=== PATIENT | male | born 1970 | race Caucasian/White ===

== ENCOUNTER → 2019-08-09 | Outpatient (CLI) | payer BC ==
[2019-08-09 16:46] LABS: HEMATOCRIT 46.1 % (42.0-52.0); MEAN CELL VOLUME 98.7 fl (80.0-94.0); MEAN CORPUSCULAR HGB 33.8 pg (27.0-31.0); MEAN CORPUSCULAR HGB CONC 34.3 g/dl (33.0-37.0); MEAN PLATELET VOLUME 9.2 fl (9.6-12.3); PLATELET COUNT AUTOMATED 291 10*3/uL (130-400); RED BLOOD COUNT 4.67 10*6/uL (4.50-5.90); WHITE BLOOD COUNT 10.5 10*3/uL (4.8-10.8)
[2019-08-09 17:07] LABS: ALKALINE PHOSPHATASE 75 U/L (45-117); BUN 11 mg/dl (7-24); CHLORIDE 103 mmol/L (98-107); CHOLESTEROL 249 mg/dL (<200); CREATININE 0.91 mg/dL (0.70-1.30); FREE T4 1.02 ng/dl (0.76-1.46); HDL CHOLESTEROL 62 mg/dl (40-60); LDL CHOLESTEROL 154 mg/dL (9-159); POTASSIUM 3.7 mmol/L (3.5-5.1); SGOT/AST 26 IU/L (3-35); SGPT/ALT 41 U/L (12-78); SODIUM 138 mmol/L (136-145); TOTAL PROTEIN 8.3 gm/dL (6.4-8.2); TRIGLYCERIDES 165 mg/dl (<150); VLDL CHOLESTEROL 33 mg/dL (6-40)
[2019-08-09 17:08] LABS: TOTAL CELLS COUNTED 100 #CELLS
[2019-08-09 17:09] LABS: PLATELET SUFFICIENCY NORMAL (NORMAL)
[2019-08-09 18:05] LABS: VITAMIN D, 25-HYDROXY 37.1 ng/mL (30-100)
== END | disposition home or self-care (01) ==
LOC: LAB 16:27
PROVIDERS: Internal Medicine
DX: Z12.5 Encounter for screening for malignant neoplasm of prostate (principal); R74.8 Abnormal levels of other serum enzymes; R79.89 Other specified abnormal findings of blood chemistry; R53.81 Other malaise; R94.5 Abnormal results of liver function studies; R70.0 Elevated erythrocyte sedimentation rate; E55.9 Vitamin D deficiency, unspecified

== ENCOUNTER → 2020-01-27 | Outpatient (CLI) | payer BC | END | disposition home or self-care (01) | LOC: COVID19 14:59 | PROVIDERS: ATTEND Internal Medicine | DX: Z20.828 Contact with and (suspected) exposure to other viral communicable diseases (principal) ==

== ENCOUNTER 2020-12-20 05:21 | Emergency (ER) | payer BC ==
[~2020-12-20] VITALS: Ht 170.1 cm; Wt 77.1 kg
== END 2020-12-20 06:57 | disposition left against medical advice (07) ==
LOC: ED 05:21
DX: M79.601 Pain in right arm (principal); Z53.21 Procedure and treatment not carried out due to patient leaving prior to being seen by health care provider

== ENCOUNTER 2023-02-11 14:58 | Emergency (ER) | payer OTHER ==
[~2023-02-11] VITALS: Ht 175.2 cm; Wt 72.6 kg
[2023-02-11 16:02] LABS: MANUAL DIFF REFLEX YES; MEAN CORPUSCULAR HGB 31.8 pg (27.0-31.0); MEAN CORPUSCULAR HGB CONC 34.2 g/dl (33.0-37.0); MEAN PLATELET VOLUME 8.8 fl (9.6-12.3); PLATELET COUNT AUTOMATED 343 10*3/uL (130-400); RED BLOOD COUNT 5.16 10*6/uL (4.50-5.90); RED CELL DISTRI WIDTH 12.8 % (0-14.5); WHITE BLOOD COUNT 17.8 10*3/uL (4.8-10.8)
[2023-02-11 16:24] LABS: ALKALINE PHOSPHATASE 92 U/L (46-116); BUN 15 mg/dl (9-23); CHLORIDE 104 mmol/L (98-107); LIPASE 31 U/L (12-53); PLATELET SUFFICIENCY NORMAL (NORMAL); POTASSIUM 3.9 mmol/L (3.4-5.1); SGPT/ALT 12 U/L (5-49); TOTAL CELLS COUNTED 100 #CELLS; TOTAL PROTEIN 7.3 gm/dL (6.0-8.0)
[2023-02-11 19:43] LABS: BILIRUBIN Negative (Negative); BLOOD Negative (Negative); CLARITY Clear (Clear); COLOR Dark Yellow (Yellow); GLUCOSE Negative (Negative); KETONE 1+ (Negative); LEUKO ESTERASE Trace (Negative); NITRITE Negative (Negative); SPECIFIC GRAVITY >= 1.030 (1.001-1.030)
[2023-02-11 20:12] LABS: BACTERIA TRACE; MUCOUS 1+
[2023-02-11 21:32] LABS: URINE AMPHETAMINES Positive (1000ng/ml); URINE BARBITURATES Negative (200ng/ml); URINE BENZODIAZEPINES Negative (200ng/ml); URINE CANNABINOIDS (THC) Negative (50ng/ml); URINE COCAINE Positive (300ng/ml); URINE METHADONE Negative (300ng/ml); URINE OPIATES Negative (300ng/ml); URINE PHENCYCLIDINE Negative (25ng/ml)
[2023-02-11] MEDS ORDERED: CIPRO500 MG PO (22:46)
[2023-02-11] MEDS ORDERED: METRONIDAZOLE500 M1 PO (22:46)
== END 2023-02-11 22:00 | disposition home or self-care (01) ==
LOC: ED 14:58
PROVIDERS: Physician Assistant Medical
DX: K52.9 Noninfective gastroenteritis and colitis, unspecified (principal); R11.2 Nausea with vomiting, unspecified; F17.290 Nicotine dependence, other tobacco product, uncomplicated; Z79.899 Other long term (current) drug therapy; Z20.822 Contact with and (suspected) exposure to COVID-19

== ENCOUNTER 2023-03-10 23:41 | Emergency (ER) | payer OTHER ==
[~2023-03-10] VITALS: Ht 170.1 cm; Wt 77.1 kg
[~2023-03-10 23:41] MED LIST: CIPRO500 MG PO; METRONIDAZOLE500 M1 PO
== END 2023-03-11 01:59 | disposition short-term general hospital (02) ==
LOC: ED 23:41
DX: S81.011A Laceration without foreign body, right knee, initial encounter (principal); W26.8XXA Contact with other sharp object(s), not elsewhere classified, initial encounter; Y93.89 Activity, other specified; Y92.009 Unspecified place in unspecified non-institutional (private) residence as the place of occurrence of the external cause; Y99.8 Other external cause status

== ENCOUNTER 2023-04-02 18:12 | Emergency (ER) | payer OTHER ==
[~2023-04-02] VITALS: Ht 170.1 cm; Wt 77.1 kg
[2023-04-02 19:06] LABS: HEMATOCRIT 46.3 % (42.0-52.0); MEAN CELL VOLUME 94.7 fl (80.0-94.0); MEAN CORPUSCULAR HGB 30.9 pg (27.0-31.0); MEAN CORPUSCULAR HGB CONC 32.6 g/dl (33.0-37.0); MEAN PLATELET VOLUME 9.1 fl (9.6-12.3); PLATELET COUNT AUTOMATED 422 10*3/uL (130-400); RED BLOOD COUNT 4.89 10*6/uL (4.50-5.90); RED CELL DISTRI WIDTH 12.7 % (0-14.5); WHITE BLOOD COUNT 18.4 10*3/uL (4.8-10.8)
[2023-04-02 19:08] LABS: MANUAL DIFF REFLEX YES
[2023-04-02 19:21] LABS: ALKALINE PHOSPHATASE 78 U/L (46-116); BUN 15 mg/dl (9-23); CHLORIDE 108 mmol/L (98-107); POTASSIUM 4.3 mmol/L (3.4-5.1); SGPT/ALT 10 U/L (5-49); TOTAL PROTEIN 7.8 gm/dL (6.0-8.0)
[2023-04-02 19:29] LABS: ATYPICAL LYMPHS 2 % (0-0); BASOPHILS 4 % (0-1); TOTAL CELLS COUNTED 100 #CELLS
[2023-04-02 19:30] LABS: PLATELET SUFFICIENCY HIGH (NORMAL)
[2023-04-02 19:31] LABS: TOXIC GRANULATION SLIGHT
[2023-04-02] MEDS ORDERED: VIBRAMYCIN100 MG PO (20:11)
[2023-04-02] MEDS ORDERED: CEPHALEXIN500 M1 PO (20:11)
== END 2023-04-02 20:03 | disposition home or self-care (01) ==
LOC: ED 18:12
PROVIDERS: Physician Assistant Medical
DX: L08.9 Local infection of the skin and subcutaneous tissue, unspecified (principal)

== ENCOUNTER 2023-10-07 19:34 | Emergency (ER) | payer OTHER ==
[~2023-10-07] VITALS: Ht 165.1 cm; Wt 74.5 kg
[~2023-10-07 19:34] MED LIST changes: +CEPHALEXIN500 M1 PO; +VIBRAMYCIN100 MG PO
[2023-10-07] MEDS ORDERED: SODIUM CHLORIDE 0.9% 1,000 ML IV ONE (20:00)
[2023-10-07 20:04] LABS: BASO # 0.1 10*3/uL (0.0-0.1); BASO % 0.6 % (0.0-1.0); EOS # 0.1 10*3/uL (0.0-0.4); EOS % 0.4 % (1.0-4.0); HEMATOCRIT 45.3 % (42.0-52.0); LYMPH # 2.1 10*3/uL (1.3-4.4); LYMPH % 9.5 % (27.0-41.0); MEAN CELL VOLUME 95.2 fl (80.0-94.0); MEAN CORPUSCULAR HGB 31.9 pg (27.0-31.0); MEAN CORPUSCULAR HGB CONC 33.6 g/dl (33.0-37.0); MEAN PLATELET VOLUME 8.9 fl (9.6-12.3); MONO # 1.4 10*3/uL (0.1-1.0); MONO % 6.4 % (3.0-9.0); NEUT # 18.1 10*3/uL (2.3-7.9); NEUT % 82.4 % (47.0-73.0); PLATELET COUNT AUTOMATED 369 10*3/uL (130-400); RED BLOOD COUNT 4.76 10*6/uL (4.50-5.90); RED CELL DISTRI WIDTH 13.5 % (0-14.5); WHITE BLOOD COUNT 21.9 10*3/uL (4.8-10.8)
[2023-10-07 20:21] LABS: ALKALINE PHOSPHATASE 80 U/L (46-116); BUN 9 mg/dl (9-23); CHLORIDE 106 mmol/L (98-107); ETHYL ALCOHOL 182.3 mg/dl (<3); POTASSIUM 3.7 mmol/L (3.4-5.1); SGPT/ALT 17 U/L (5-49); TOTAL PROTEIN 7.3 gm/dL (6.0-8.0)
[2023-10-07] MEDS ORDERED: ceFAZolin sodium 1 GM in SYRINGE INFUSION 10 ML IV ONE (20:30)
[2023-10-07] MEDS ORDERED: ceFAZolin sodium/sodium chlor 10 ML IV ONE (20:40)
[2023-10-07] MEDS ORDERED: ceFAZolin sodium 1 GM VIAL ONE (20:44)
[2023-10-07 22:00] LABS: BILIRUBIN Negative (Negative); BLOOD Negative (Negative); CLARITY Clear (Clear); COLOR Yellow (Yellow); GLUCOSE Negative (Negative); KETONE Negative (Negative); LEUKO ESTERASE Negative (Negative); NITRITE Negative (Negative); PH 5.5 (4.5-8.0); UROBILINOGEN 0.2 E.U./dl (0.0-1.0)
[2023-10-07 22:06] LABS: HYALINE CAST 0-2; RBC 0-2 rbc/hpf (0-2); WBC 0-2 wbc/hpf (0-5)
[2023-10-08] MEDS ORDERED: Ondansetron Hydrochloride 4 MG/2 ML VIAL IV ONE (04:40)
[2023-10-08] MEDS ORDERED: MORPHINE Sulfate 2 MG/ML SYR IV ONE (04:40)
[2023-10-08] MEDS ORDERED: Bacitracin Zinc 14 GM TUBE T ONE (05:50)
[2023-10-08] MEDS ORDERED: CEPHALEXIN500 M1 PO (05:56)
[2023-10-08] MEDS ORDERED: TRAMADOL HCL50 MG PO (05:57)
== END 2023-10-08 06:46 | disposition home or self-care (01) ==
LOC: ED 19:34
PROVIDERS: Emergency Medicine
DX: S01.01XA Laceration without foreign body of scalp, initial encounter (principal); S20.212A Contusion of left front wall of thorax, initial encounter; S05.42XA Penetrating wound of orbit with or without foreign body, left eye, initial encounter; T14.8XXA Other injury of unspecified body region, initial encounter; V29.99XA Rider (driver) (passenger) of other motorcycle injured in unspecified traffic accident, initial encounter; Y93.55 Activity, bike riding; Y92.410 Unspecified street and highway as the place of occurrence of the external cause; Y99.8 Other external cause status

== ENCOUNTER → 2023-10-09 | Outpatient (CLI) | payer OTHER ==
[~2023-10-09] MED LIST changes: +TRAMADOL HCL50 MG PO
== END | disposition home or self-care (01) ==
LOC: WOUNDCARE 14:18
PROVIDERS: ATTEND Nurse Practitioner Family
DX: S01.01XA Laceration without foreign body of scalp, initial encounter (principal); S01.419A Laceration without foreign body of unspecified cheek and temporomandibular area, initial encounter; S20.212A Contusion of left front wall of thorax, initial encounter; S01.102A Unspecified open wound of left eyelid and periocular area, initial encounter; S01.402A Unspecified open wound of left cheek and temporomandibular area, initial encounter; S41.102A Unspecified open wound of left upper arm, initial encounter; F17.210 Nicotine dependence, cigarettes, uncomplicated; Z79.899 Other long term (current) drug therapy; V29.888A Rider (driver) (passenger) of other motorcycle injured in other specified transport accidents, initial encounter; Y93.89 Activity, other specified; Y92.89 Other specified places as the place of occurrence of the external cause; Y99.8 Other external cause status

== ENCOUNTER → 2023-10-16 | Outpatient (CLI) | payer OTHER | END | disposition home or self-care (01) | LOC: WOUNDCARE 02:34 | PROVIDERS: ATTEND Nurse Practitioner Family | DX: S01.01XD Laceration without foreign body of scalp, subsequent encounter (principal); S01.419D Laceration without foreign body of unspecified cheek and temporomandibular area, subsequent encounter; S20.212D Contusion of left front wall of thorax, subsequent encounter; S01.102D Unspecified open wound of left eyelid and periocular area, subsequent encounter; S01.402D Unspecified open wound of left cheek and temporomandibular area, subsequent encounter; S41.101D Unspecified open wound of right upper arm, subsequent encounter; S41.102D Unspecified open wound of left upper arm, subsequent encounter; F17.210 Nicotine dependence, cigarettes, uncomplicated; Z79.899 Other long term (current) drug therapy; V29.888D Rider (driver) (passenger) of other motorcycle injured in other specified transport accidents, subsequent encounter ==